=== PATIENT | male | born 1970 | race Caucasian/White ===

== ENCOUNTER 2017-08-19 06:48 | Emergency (ER) | payer OTHER, BC ==
[2017-08-19 07:12] LABS: EOSINOPHIL (%) 5.2 % (0-5); EOSINOPHIL COUNT 0.3 K/uL (0-0.3); HEMATOCRIT 45.1 % (38.0-50.0); IMMATURE GRANULOCYTE (%) 0.9 % (0.0-0.7); IMMATURE GRANULOCYTE COUNT 0.1 K/uL; INSTRUMENT ABS NEUTROPHIL CT 4.2 K/uL; LYMPHOCYTE COUNT 1.3 K/uL (1.0-2.8); MCH 30.1 PG (29.0-34.0); MCHC 33.7 G/DL (30.0-36.0); MCV 89.3 FL (86-99); MEAN PLAT.VOLUME 9.6 uM^3 (9.0-12.4); MONOCYTE (%) 8.9 % (3-12); MONOCYTE COUNT 0.6 K/uL (0-0.8); NEUTROPHIL (%) 65.1 % (45-76); NEUTROPHIL COUNT 4.2 K/uL (1.8-6.4); PLATELET COUNT 329 K/uL (156-360); RBC DIS.WIDTH-CV 12.1 % (11.8-14.6); RBC DIS.WIDTH-SD 39.4 % (39-53); RED BLOOD COUNT 5.05 M/uL (4.00-5.50); WHITE BLOOD COUNT 6.5 K/uL (4.1-10.2)
[2017-08-19 07:52] LABS: ANION GAP 9 MEQ/L (2-14); CHLORIDE 105 MEQ/L (99-109); GFR ESTIMATE (CALCULATED) > 59 mL/min/; GLUCOSE 114 mg/dL (70-99); POTASSIUM 4.3 MEQ/L (3.7-5.4); SAMPLE HEMOLYSIS CHECK 0; SAMPLE ICTERIC CHECK 0; SAMPLE LIPEMIA CHECK 0; SODIUM 139 MEQ/L (136-147); UREA NITROGEN (BUN) 19 mg/dL (9-23)
[2017-08-19 08:23] LABS: AMYLASE 30 IU/L (1-118)
[2017-08-19 08:41] LABS: LIPASE 16 U/L (1.0-51.0); SERUM ETHYL ALCOHOL < 10 mg/dL
[2017-08-19] MEDS ORDERED: TYLENOL WITH C1 EACH PO (09:00)
== END 2017-08-19 09:39 | disposition home or self-care (01) ==
LOC: TRA 06:48
PROVIDERS: Emergency Medicine
PROC: 2W3MX1Z Immobilization of Left Lower Extremity using Splint (ICD-10-PCS; principal; 2017-08-19)
DX: S92.342A Displaced fracture of fourth metatarsal bone, left foot, initial encounter for closed fracture (principal); S20.229A Contusion of unspecified back wall of thorax, initial encounter; S60.212A Contusion of left wrist, initial encounter; V28.4XXA Motorcycle driver injured in noncollision transport accident in traffic accident, initial encounter; M25.512 Pain in left shoulder; M25.531 Pain in right wrist
CPT/HCPCS: 70450; 71260; 72125; 72129; 72132; 73030; 73110; 73130; 73610; 73630; 74177; 80048; 81003; 82150; 83690; 85025; 86850; 86900; 86901; 99281; 99285; G0480; J2270; J2405; J3010

== ENCOUNTER 2017-08-27 11:57 | Emergency (ER) | payer OTHER, BC ==
[~2017-08-27] VITALS: Ht 175.3 cm; Wt 95.7 kg
[~2017-08-27 11:57] MED LIST: TYLENOL WITH C1 EACH PO
[2017-08-27] MEDS ORDERED: FLEXERIL10 MG PO (15:14)
[2017-08-27] MEDS ORDERED: LIDODERM 5% P1 PATCH TD (15:23)
[2017-08-27 15:35] VITALS: BP 119/81
== END 2017-08-27 15:36 | disposition home or self-care (01) ==
LOC: EME 11:57
DX: S43.402A Unspecified sprain of left shoulder joint, initial encounter (principal); S39.012A Strain of muscle, fascia and tendon of lower back, initial encounter; V29.9XXD Motorcycle rider (driver) (passenger) injured in unspecified traffic accident, subsequent encounter
CPT/HCPCS: 73030; 73200; 99281; 99284; J3010

== ENCOUNTER 2017-11-14 11:21 | Emergency (ER) | payer BC ==
[~2017-11-14] VITALS: Ht 175.3 cm; Wt 96.0 kg
[~2017-11-14 11:21] MED LIST changes: +FLEXERIL10 MG PO; +LIDODERM 5% P1 PATCH TD
[2017-11-14] MEDS ORDERED: FLEXERIL10 MG PO (12:33)
[2017-11-14] MEDS ORDERED: PERCOCET 5/31 TABLET PO (12:33)
[2017-11-14 12:55] VITALS: BP 128/98
== END 2017-11-14 12:56 | disposition home or self-care (01) ==
LOC: EME 11:21
DX: S20.212A Contusion of left front wall of thorax, initial encounter (principal); W01.0XXA Fall on same level from slipping, tripping and stumbling without subsequent striking against object, initial encounter
CPT/HCPCS: 71101; 99281; 99285; J1885